=== PATIENT | male | born 1960 | race Caucasian/White ===

== ENCOUNTER 2019-05-31 10:20 | Emergency (ER) | payer OTHER ==
[2019-05-31 10:27] VITALS: BP 133/85; PULSE 85; TEMP 98.3; BMI 32.3
--- NOTE | 2019-05-31 10:36 | PDOC ---
History of Present Illness - General Chief Complaint: Toothache Stated Complaint: DENTAL PAIN Time Seen by Provider: 05/31/19 10:35 History Source: Patient - History of Present Illness Initial Comments: 05/31/19 11:13 Pt presents to the ED complaining of a one day history of tooth pain. Denies fever, nausea or vomiting, facial swelling or trismus. took ibuprofen 600 last night with minimal relief. Past History - Past Medical History Allergies/Adverse Reactions: Allergies Allergy/AdvReac Type Severity Reaction Status Date / Time No Known Allergies Allergy Verified 05/31/19 10:23 Home Medications: Ambulatory Orders Ibuprofen 800 mg PO TID PRN #30 tablet 05/31/19 Ibuprofen [Motrin -] 600 mg PO ONCE 05/31/19 COPD: No Other medical history: denies - Psycho Social/Smoking Cessation Hx Smoking History: Never smoked Have you smoked in the past 12 months: No Number of Cigarettes Smoked Daily: 0 Information on smoking cessation initiated: No Hx Alcohol Use: No Drug/Substance Use Hx: No Substance Use Type: None Review of Systems - Review of Systems Able to Perform ROS?: Yes Is the patient limited Turkmen proficient: No HEENTM: Yes: Mouth Pain, Dental Problems. No: Symptoms Reported, See HPI, Eye Pain, Blurred Vision, Tearing, Recent change in vision, Double Vision, Cataracts , Ear Pain, Ocular Prothesis, Ear Discharge, Nose Pain, Nose Congestion, Tinnitus, Nose Bleeding, Hearing Loss, Throat Pain, Throat Swelling, Difficulty Swallowing, Mouth Swelling, Other Respiratory: No: Symptoms reported, See HPI, Cough, Orthopnea, Shortness of Breath, SOB with Exertion, SOB at Rest, Stridor, Wheezing, Productive cough, Hemoptysis, Other Cardiac (ROS): No: Symptoms Reported, See HPI, Chest Pain, Edema, Irregular Heart Rate, Lightheadedness, Palpitations, Syncope, Chest Tightness, Other ABD/GI: No: Symptoms Reported, See HPI, Abdominal Distended, Abd. Pain w/ defecation, Blood Streaked Bowels, Constipated, Diarrhea, Difficulty Swallowing , Nausea, Poor Appetite, Poor Fluid Intake, Rectal Bleeding, Vomiting, Indigestion, Abdominal cramping, Tarry Stools, Other All Other Systems: Reviewed and Negative *Physical Exam - Vital Signs Last Vital Signs Temp Pulse Resp BP Pulse Ox 98.3 F 85 18 133/85 98 05/31/19 10:20 05/31/19 10:20 05/31/19 10:20 05/31/19 10:20 05/31/19 10:20 - Physical Exam Comments: 05/31/19 11:16 Gen: alert, NAD HEENT: no facial swelling, no trismus, no evidence of periapical abscess. + multiple dental caries, + tenderness to percussion of tooth numbers 12 and 13. Medical Decision Making - Medical Decision Making 05/31/19 11:18 pt presents to the ED complaining of dental pain. No evidence of abscess. Will treat pain with motrin and percoset. patient has already sought dental follow up and will see dental tomorrow. Will discharge. Discharge - Discharge Information Problems reviewed: Yes Clinical Impression/Diagnosis: Dental cavity Condition: Good Disposition: HOME - Admission No - Additional Discharge Information Prescriptions: Ibuprofen 800 mg PO TID PRN #30 tablet PRN Reason: Pain Prescription Drug Monitoring Program (I-STOP) results: I-STOP not reviewed - Follow up/Referral - Patient Discharge Instructions Patient Printed Discharge Instructions: DI for Dental Pain Additional Instructions: you came to the ED for pain in your tooth. this pain is most likely caused by a cavity. I do not see evidence of infection in the tooth, so I did not prescribe you antibiotics. You can take the ibuprofen that I prescribed for the pain. you should return to the ED immediately for fever, severely worsening pain, swelling in the face that is so severe that you have a hard time opening your mouth, other new or worsening symptoms. Make sure you keep your appointment with your doctor tomorrow. - Post Discharge Activity
[2019-05-31] MEDS ORDERED: IBUPROFEN 400 MG TABLET (FP) PO ONE ×2 (11:02→11:07)
== END 2019-05-31 11:15 | disposition home or self-care (01) ==
LOC: FER 10:20
DX: K02.9 Dental caries, unspecified (principal)
CPT/HCPCS: 99282-25